=== PATIENT | female | born 1970 | race Caucasian/White ===

== ENCOUNTER 2020-10-13 01:56 | Emergency (ER) | payer OTHER ==
--- OUTSIDE RECORDS SUMMARY | 2020-10-13 02:02 | XMS REPORT | Continuity of Care Document ---
:1970 Author Organization [facility] t Address [address] [place] [address] Care Team Providers Name Role Phone Quinn Carlos Attending Clinician Unavailable Henry Guerra Attending Clinician Unavailable Marissa WYNN Attending Clinician Unavailable Ermelinda Avila Attending Clinician Unavailable Taj Attending Clinician Unavailable AYLEEN BACK Attending Clinician Unavailable YONY COOLEY Attending Clinician Unavailable KASSI Attending Clinician Unavailable MJ Attending Clinician Unavailable WILLIAM Attending Clinician Unavailable Jose L Admitting Clinician Unavailable MJ Admitting Clinician Unavailable Problems This patient has no known problems. Allergies, Adverse Reactions, Alerts This patient has no known allergies or adverse reactions. Medications This patient has no known medications. Procedures This patient has no known procedures. Results Test Description Test Time Test Comments Results Result Comments Source Accuc[facility]k 2018-11-29 06:31:00 Test Item Value Reference Range Interpretation Comme nts [facility]uc[facility] (test code = ACU) 179 mg/dL 70-110 H [id number] 13:42:00 Test Item Value Reference Range Interpretation Comments Chemistry (test code 130 mmol/L 136-145 L = NA-T) Chemistry (test code 4.8 mmol/L 3.5-5.1 N = K-T) Chemistry (test code 95 mmol/L 98-107 L = CL) Chemistry (test code 23 mmol/L 22-29 N = CO2) Chemistry (test code 17 mmol/L 10-20 N = ANGP) Chemistry (test code 19 mg/dL 7.0-18.7 H = BUN) Chemistry (test code 1.08 mg/dL 0.6-1.1 N = CREATT) Chemistry (test code 55 Referen ce Range for = EGFRMDRD) Estimated GFR: Great er than 90 mL/min/1.73 m2NOTE:The MDRD equation has no t been validated for u se with theelderly (ove r 70 years of age), women, patientswith se rious comorbid condit ion or persons with ex tremes ofbody size, mu scle mass, or nutrit ional status. Chemistry (test code 452 mg/dL 70-105 H = GLU-T) Chemistry (test code 9.4 mg/dL 7.8-10.44 N = CA) [id number] 21:09:00 Test Item Value Reference Range Interpretation Comments Urinalysis (test Negative Negative Method of s ensitivity- code = BHCGUT) INDETERMINANT : results should be repea humphrey after 48-72 hrs POS ITIVE: results may be detected as early as 1 day after the first missed period A dilute urine specimen may no t contain representativel evels of hCG.If pregnanc y is still suspected, a fi rst morning urinespecimen O R a random blood specimen should be obtainedfrom e patient 48-72 hours lat er and re-tested. Urinalysis (test 1.020 1.002-1.036 N code = PREGUSG) [id number] 23:52:00 Test Item Value Reference Range Interpretation Comments Urinalysis (test code = UACLR) Yellow Yellow Urinalysis (test code = UACLY) Clear Clear Urinalysis (test code = SPGR) 1.007 1.002-1.036 N Urinalysis (test code = PATRICIA) 5.5 5.0-9.0 N Urinalysis (test code = UALEU) Negative Negative Urinalysis (test code = UANIT) Negative Negative Urinalysis (test code = Negative mg/dL Neg-Trace PROUADIP) Urinalysis (test code = GLUCU) Negative mg/dL Negative Urinalysis (test code = KETU) Trace mg/dL Negative A Urinalysis (test code = 0.2 mg/dL 0.2-1.0 UAUROB) Urinalysis (test code = UABIL) Negative Negative Urinalysis (test code = UABLD) Moderate Negative A Urine Source: Urine [id number] 23:52:00 Test Item Value Reference Range Interpretation Comments Urinalysis (test code = UARBC) 4-6 HPF 0-3 Urinalysis (test code = UAWBC) 0-3 HPF 0-3 Urinalysis (test code = UASQUAM) 4-6 HPF 0-3 A Urinalysis (test code = UABAC) Rare-Few HPF None Seen Urine Source: Urine [id number] 22:41:00 Test Item Value Reference Range Interpretation Comments Chemistry (test 136 mmol/L 136-145 N code = NA-T) Chemistry (test 4.2 mmol/L 3.5-5.1 N code = K-T) Chemistry (test 97 mmol/L 98-107 L code = CL) Chemistry (test 23 mmol/L 22-29 N code = CO2) Chemistry (test 20 mmol/L 10-20 N code = ANGP) Chemistry (test 22 mg/dL 7.0-18.7 H code = BUN) Chemistry (test 0.90 mg/dL 0.6-1.1 N code = CREATT) Chemistry (test 68 Reference Ra nge for code = EGFRMDRD) Estimated G FR: Gre ater than 90 mL/min/ 1.73 m2NOTE:The MDRD equation has no t been validated for use with theeld erly (over 70 years of age), women, patients with serious comorbi d condition or pe rsons with extremes o fbody size, muscle ma ss, or nutritional status. Chemistry (test 151 mg/dL 70-105 H code = GLU-T) Chemistry (test 9.1 mg/dL 7.8-10.44 N code = CA) Chemistry (test 0.2 mg/dL 0.2-1.2 N code = TBILI) Chemistry (test 6.8 g/dL 6.0-8.3 N code = TP) Chemistry (test 3.6 g/dL 3.5-5.0 N code = ALB) Chemistry (test 3.2 g/dL 2.4-3.5 N code = GLOB) Chemistry (test 1.1 g/dL 1.2-2.2 L code = AG) Chemistry (test 52 U/L 40-150 N code = ALP) Chemistry (test 5 U/L 5-34 N code = AST) Chemistry (test Less than 7 8-55 L code = ALT) U/L [id number] 22:31:00 Test Item Value Reference Range Interpretation Comments Hematology (test code = WBCT) 11.9 thou/uL 4.8-10.8 H Hematology (test code = RBCT) 3.60 mill/uL 4.20-5.40 L Hematology (test code = HGBT) 10.5 g/dL 12.0-16.0 L Hematology (test code = HCTT) 31.6 % 36.0-47.0 L Hematology (test code = MCV) 87.8 fL 78.0-98.0 N Hematology (test code = MCH) 29.1 pg 27.0-31.0 N Hematology (test code = MCHC) 33.1 g/dL 32.0-36.0 N Hematology (test code = RDW) 13.8 % 11.5-14.5 N Hematology (test code = PLTT) 223 thou/uL 130-400 N Hematology (test code = MPV) 8.4 fL 7.4-10.4 N Hematology (test code = %NEUT) 69.4 % 42.0-75.0 N Hematology (test code = %LYMPH) 23.6 % 21.0-51.0 N Hematology (test code = %MONO) 5.6 % 0.0-10.0 N Hematology (test code = %EOS) 0.7 % 0.0-10.0 N Hematology (test code = %BASO) 0.7 % 0.0-1.0 N Hematology (test code = NEUT#) 8.3 thou/uL 1.40-6.50 H Hematology (test code = LYMPH#) 2.8 thou/uL 1.20-3.40 N Hematology (test code = MONO#) 0.7 thou/uL 0.11-0.59 H Hematology (test code = EOS#) 0.1 thou/uL 0.0-0.7 N Hematology (test code = BASO#) 0.1 thou/uL 0.0-0.2 N Chemistry - [id number] 00:38:00 Test Item Value Reference Range Interpretation Comments Chemistry - Specials (test code 1.3819 uIU/mL 0.35-4.94 N = TSH3) Chemistry - [id number] 00:38:00 Test Item Value Reference Range Interpretation Comments Chemistry - Specials Negative NEGATIVE Method of sensitivity- (test code = BHCGST) Indete rminant: results should be repeated after 48-72 hrs Positive: results may be detected as ear ly as 1 day after the first missed menses. [id number] 00:22:00 Test Item Value Reference Range Interpretation Comments Chemistry (test 0.4 ng/mL 0-6.6 N code = CKMBM-T) Chemistry (test Less than < 0.028 code = TROPI-T) 0.010 ng/mL Reference Ra nge 0. 00 - 0.028 ng/mL Negative 0.029 - 0.29 n g/mL Indeterminate Greater or Equa l to 0.3 ng/mL St rongly suggests ID [id number] 00:18:00 Test Item Value Reference Range Interpretation Comments Coagulation (test code = PTT) 33.1 SEC 22.9-36.1 N Anticoagulant? NONEMedical Necessity: SUSP [id number] 00:12:00 Test Item Value Reference Range Interpretation Comments Chemistry (test code = MG) 1.7 mg/dL 1.6-2.6 N [id number] 00:08:00 Test Item Value Reference Range Interpretation Comments Coagulation (test 13.5 SEC 12.0-14.7 N code = PT-T) Coagulation (test 1.0 ATTENTION: code = INR) READ CAREFULLY-- The recommended the rapeutic ranges for oral anticoagulanttr eatments are: ------ Low Intensity: 1.5 - 2.0 Moderate In tensity: 2.0 - 3.0 High Intensity (1): 2.5 - 3.5 High In tensity (2): 3.0 - 4. 0 CRITICAL: > 4.0 Anticoagulant? NONEMedical Necessity SUSPECT [id number] 23:10:00 Test Item Value Reference Range Interpretation Comments Chemistry (test code 140 mmol/L 136-145 N = NA-T) Chemistry (test code 4.1 mmol/L 3.5-5.1 N = K-T) Chemistry (test code 105 mmol/L 98-107 N = CL) Chemistry (test code 19 mmol/L 22-29 L = CO2) Chemistry (test code 20 mmol/L 10-20 N = ANGP) Chemistry (test code 16 mg/dL 7.0-18.7 N = BUN) Chemistry (test code 0.70 mg/dL 0.6-1.1 N = CREATT) Chemistry (test code 90 Referen ce Range for = EGFRMDRD) Estimated GFR: Great er than 90 mL/min/1.73 m2NOTE:The MDRD equation has no t been validated for u se with theelderly (ove r 70 years of age), women, patientswith se rious comorbid condit ion or persons with ex tremes ofbody size, mu scle mass, or nutrit ional status. Chemistry (test code 149 mg/dL 70-105 H = GLU-T) Chemistry (test code 10.0 mg/dL 7.8-10.44 N = CA) Chemistry (test code 0.3 mg/dL 0.2-1.2 N = TBILI) Chemistry (test code 7.4 g/dL 6.0-8.3 N = TP) Chemistry (test code 4.1 g/dL 3.5-5.0 N = ALB) Chemistry (test code 3.3 g/dL 2.4-3.5 N = GLOB) Chemistry (test code 1.2 g/dL 1.2-2.2 N = AG) Chemistry (test code 62 U/L 40-150 N = ALP) Chemistry (test code 10 U/L 5-34 N = AST) Chemistry (test code 7 U/L 8-55 L = ALT) [id number] 23:10:00 Test Item Value Reference Range Interpretation Comments Chemistry (test code = LIP) 35 U/L 8-78 N Chemistry - [id number] 23:06:00 Test Item Value Reference Range Interpretation Comments Chemistry - Lactate (test code = 1.7 mmol/L 0.5-2.2 N LACTSEP-T) [id number] 22:47:00 Test Item Value Reference Range Interpretation Comments Hematology (test code = WBCT) 11.2 thou/uL 4.8-10.8 H Hematology (test code = RBCT) 4.10 mill/uL 4.20-5.40 L Hematology (test code = HGBT) 11.6 g/dL 12.0-16.0 L Hematology (test code = HCTT) 34.3 % 36.0-47.0 L Hematology (test code = MCV) 83.6 fL 78.0-98.0 N Hematology (test code = MCH) 28.2 pg 27.0-31.0 N Hematology (test code = MCHC) 33.7 g/dL 32.0-36.0 N Hematology (test code = RDW) 14.5 % 11.5-14.5 N Hematology (test code = PLTT) 238 thou/uL 130-400 N Hematology (test code = MPV) 8.2 fL 7.4-10.4 N Hematology (test code = %NEUT) 67.4 % 42.0-75.0 N Hematology (test code = %LYMPH) 27.2 % 21.0-51.0 N Hematology (test code = %MONO) 4.1 % 0.0-10.0 N Hematology (test code = %EOS) 0.4 % 0.0-10.0 N Hematology (test code = %BASO) 0.9 % 0.0-1.0 N Hematology (test code = NEUT#) 7.5 thou/uL 1.40-6.50 H Hematology (test code = LYMPH#) 3.0 thou/uL 1.20-3.40 N Hematology (test code = MONO#) 0.5 thou/uL 0.11-0.59 N Hematology (test code = EOS#) 0.0 thou/uL 0.0-0.7 N Hematology (test code = BASO#) 0.1 thou/uL 0.0-0.2 N [id number] 22:47:00 Test Item Value Reference Range Interpretation Comments Accuchek (test code = ACU) 147 mg/dL 70-110 H Molecular Testing [id number] 20:21:00 Test Item Value Reference Range Interpretation Comments Molecular Testing Not Detected NotDetected MM (test code = GCPCRT) Molecular Testing Not Detected NotDetected MM (test code = CHLAMPCRT) Molecular Testing MM (test code = PCRINTERP) Acc urate results are dep endent on adequate specimencollect ion, absence of inhi bitors and sufficient DNA to bedetected. Ac ceptable specimens for t his test are vaginal orc ervical swabs (self col lected or clinician collected),firs t void urine (primary specimen for males), and liquidbased pap specimens.A res ult of "Inconclusive" warrants re-collection.V iability or infectivity can NOT be inferred sin ce targetDNA may p ersist in the absence of viable organisms. For Urine Sources Collect ion of urine volumes g reater than 20-40 mLs mayresult in sp ecimen dilution that m ay reduce testsens itivity; lesser volumes may not adequately rinseorganisms into the specimen Source: Urine VOIDED [id number] 08:23:00 Test Item Value Reference Range Interpretation Comments Toxicology (test Detected NotDetected A code = ARNAUD) Toxicology (test Not Detected NotDetected code = PCP) Toxicology (test Not Detected NotDetected code = COCN) Toxicology (test Not Detected NotDetected code = METHAMPU) Toxicology (test Detected NotDetected A code = OPIA) Toxicology (test Not Detected NotDetected code = AMPHU) Toxicology (test Not Detected NotDetected code = RUSTY) Toxicology (test Not Detected NotDetected code = TRICY) Toxicology (test Not Detected NotDetected code = MTD) Toxicology (test Not Detected NotDetected code = EDITA) Toxicology (test Not Detected NotDetected code = OXYCOD) Toxicology (test Not Detected NotDetected code = PPX) Toxicology (test The MedT ox Profile-V code = MTCUTOFF) Panel for Q ualitative Drugs ofAbuse a ssays are for presump tive screening testi ng only.The drug c lass and detection l imits are as follows: Drug Class Detection LimitAmphetamin e 500 ng/mL*Barbitura ruperto 200 ng/mLBenzodiaze pines 150 ng/mL*Cocaine 150 ng/mL*Methamphe tamine 500 ng/mL*Methadone 200 ng/mL*Opiates 100 ng/mL*Oxycodone 100 n g/mLPCP 25 ng/mLPropox yphene 30 0 ng/mLTricyclic Antidepressants 300 ng/mLCannabinoi ds (THC) 50 ng/mLTests whic h yield a presumptive p ositive result must bet ested using a more sp ecific alternate chemi red method inorder to obtain a confir med analytical resu lt. Additionalconfi rmation and identificat ion may be ordered on a routinebasis, i f desired. Presu mptive positive urines are held fortwo mignon tn. Urine Source: Urine Straight [id number] 08:22:00 Test Item Value Reference Range Interpretation Comments Urinalysis (test Negative Negative Method of s ensitivity- code = BHCGUT) INDETERMINANT : results should be repea humphrey after 48-72 hrs POS ITIVE: results may be detected as early as 1 day after the first missed period A dilute urine specimen may no t contain representativel evels of hCG.If pregnanc y is still suspected, a fi rst morning urinespecimen O R a random blood specimen should be obtainedfrom th e patient 48-72 hours lat er and re-tested. Urinalysis (test 1.015 1.002-1.036 N code = PREGUSG) [id number] 08:21:00 Test Item Value Reference Range Interpretation Comments Urinalysis (test code = UACLR) Yellow Yellow Urinalysis (test code = UACLY) Clear Clear Urinalysis (test code = SPGR) 1.015 1.005-1.030 N Urinalysis (test code = PATRICIA) 6.5 5.0-9.0 N Urinalysis (test code = UALEU) Negative Negative Urinalysis (test code = UANIT) Negative Negative Urinalysis (test code = PROUADIP) 100 mg/dL Neg-Trace A Urinalysis (test code = GLUCU) 500 mg/dL Negative A Urinalysis (test code = KETU) 40 mg/dL Negative A Urinalysis (test code = UAUROB) 0.2 mg/dL 0.2-1.0 Urinalysis (test code = UABIL) Negative Negative Urinalysis (test code = UABLD) Moderate Negative A Urine Source: Urine Straight [id number] 08:21:00 Test Item Value Reference Range Interpretation Comments Urinalysis (test code = UARBC) 7-10 HPF 0-3 A Urinalysis (test code = UASQUAM) 4-6 HPF 0-3 A Urinalysis (test code = UABAC) Rare-Few HPF None Seen Urine Source: Urine Straight [id number] 08:12:00 Test Item Value Reference Range Interpretation Comments Hematology (test code = 11.5 thou/uL 4.8-10.8 H WBCT) Hematology (test code = 3.75 mill/uL 4.20-5.40 L RBCT) Hematology (test code = 11.2 g/dL 12.0-16.0 L HGBT) Hematology (test code = 33.9 % 36.0-47.0 L HCTT) Hematology (test code = 88.2 fl 81.0-99.0 N MCV) Hematology (test code = 29.3 pg 27.0-31.0 N MCH) Hematology (test code = 33.2 g/dL 32.0-36.0 N MCHC) Hematology (test code = 12.2 % 11.5-14.5 N RDW) Hematology (test code = 317 thou/uL 130-400 N PLTT) Hematology (test code = 7.6 fL 7.4-10.4 N MPV) Hematology (test code = 67 % 42-75 N NE) Hematology (test code = 1 % 5-11 L BA) Hematology (test code = 27 % 21-51 N LY) Hematology (test code = 4 % 0-10 N MO) Hematology (test code = 1 % 0-10 N EO) Hematology (test code = SLIGHT = 6-15 cells 0-5/hpf AN) (100X) Hematology (test code = Appears Adequate PCOMMENT) [id number] 08:08:00 Test Item Value Reference Range Interpretation Comments Chemistry (test 137 mmol/L 136-145 N code = NA-T) Chemistry (test 4.2 mmol/L 3.5-5.1 N code = K-T) Chemistry (test 101 mmol/L 98-107 N code = CL) Chemistry (test 22 mmol/L 22-29 N code = CO2) Chemistry (test 18 mmol/L 10-20 N code = ANGP) Chemistry (test 11 mg/dL 7.0-18.7 N code = BUN) Chemistry (test 0.72 mg/dL 0.6-1.1 N code = CREATT) Chemistry (test 88 Reference Ra nge for code = EGFRMDRD) Estimated G FR: Gre ater than 90 mL/min/ 1.73 m2NOTE:The MDRD equation has no t been validated for use with theeld erly (over 70 years of age), women, patients with serious comorbi d condition or pe rsons with extremes o fbody size, muscle ma ss, or nutritional status. Chemistry (test 363 mg/dL 70-105 H code = GLU-T) Chemistry (test 9.1 mg/dL 7.8-10.44 N code = CA) Chemistry (test 0.2 mg/dL 0.2-1.2 N code = TBILI) Chemistry (test 6.8 g/dL 6.0-8.3 N code = TP) Chemistry (test 3.5 g/dL 3.5-5.0 N code = ALB) Chemistry (test 3.3 g/dL 2.4-3.5 N code = GLOB) Chemistry (test 1.1 g/dL 1.2-2.2 L code = AG) Chemistry (test 60 U/L 40-150 N code = ALP) Chemistry (test 6 U/L 5-34 N code = AST) Chemistry (test Less than 7 8-55 L code = ALT) U/L What test does the doctor want? C-REACTIVE PROTEIN (CRP)[id number] 08:08:00 Test Item Value Reference Range Interpretation Comments Chemistry (test code = Less than 0.50 = or < 0.5 CRP) mg/dL What test does the doctor want? C-REACTIVE PROTEIN (CRP)[id number] 08:06:00 Test Item Value Reference Range Interpretation Comments Chemistry (test code = CK) 21 U/L 29-168 L [id number] 08:06:00 Test Item Value Reference Range Interpretation Comments Chemistry (test code = CHANDRA) 29.0 U/L 25-125 N [id number] 08:06:00 Test Item Value Reference Range Interpretation Comments Chemistry (test code = LIP) 24 U/L 8-78 N [id number] 16:28:00 Test Item Value Reference Range Interpretation Comments Accuchek (test code = ACU) 313 mg/dL 70-110 H [id number] 13:14:00 Test Item Value Reference Range Interpretation Comments Accuchek (test code = ACU) 348 mg/dL 70-110 H [id number] 12:26:00 Test Item Value Reference Range Interpretation Comments Urinalysis (test code = UACLR) Yellow Yellow Urinalysis (test code = UACLY) Clear Clear Urinalysis (test code = SPGR) 1.015 1.005-1.030 N Urinalysis (test code = PATRICIA) 6.0 5.0-9.0 N Urinalysis (test code = UALEU) Negative Negative Urinalysis (test code = UANIT) Negative Negative Urinalysis (test code = 100 mg/dL Neg-Trace A PROUADIP) Urinalysis (test code = GLUCU) >=1000 mg/dL Negative A Urinalysis (test code = KETU) 15 mg/dL Negative A Urinalysis (test code = UAUROB) 0.2 mg/dL 0.2-1.0 Urinalysis (test code = UABIL) Negative Negative Urinalysis (test code = UABLD) Moderate Negative A Urine Source: Urine [id number] 12:26:00 Test Item Value Reference Range Interpretation Comments Urinalysis (test code = UARBC) 4-6 HPF 0-3 Urinalysis (test code = UAWBC) None Seen HPF 0-3 Urinalysis (test code = 4-6 HPF 0-3 A UASQUAM) Urinalysis (test code = UABAC) Rare-Few HPF None Seen Urine Source: Urine [id number] 11:40:00 Test Item Value Reference Range Interpretation Comments Hematology (test code = WBCT) 9.8 thou/uL 4.8-10.8 N Hematology (test code = RBCT) 3.83 mill/uL 4.20-5.40 L Hematology (test code = HGBT) 11.4 g/dL 12.0-16.0 L Hematology (test code = HCTT) 33.5 % 36.0-47.0 L Hematology (test code = MCV) 87.6 fl 81.0-99.0 N Hematology (test code = MCH) 29.8 pg 27.0-31.0 N Hematology (test code = MCHC) 34.1 g/dL 32.0-36.0 N Hematology (test code = RDW) 12.7 % 11.5-14.5 N Hematology (test code = PLTT) 264 thou/uL 130-400 N Hematology (test code = MPV) 8.6 fL 7.4-10.4 N Hematology (test code = NE) 63 % 42-75 N Hematology (test code = LY) 31 % 21-51 N Hematology (test code = MO) 6 % 0-10 N Chemistry - [id number] 11:33:00 Test Item Value Reference Range Interpretation Comments Chemistry - Lactate (test code = 1.1 mmol/L 0.5-2.2 N LACTSEP-T) [id number] 11:27:00 Test Item Value Reference Range Interpretation Comments Chemistry (test 135 mmol/L 136-145 L code = NA-T) Chemistry (test 4.3 mmol/L 3.5-5.1 N code = K-T) Chemistry (test 100 mmol/L 98-107 N code = CL) Chemistry (test 23 mmol/L 22-29 N code = CO2) Chemistry (test 16 mmol/L 10-20 N code = ANGP) Chemistry (test 14 mg/dL 7.0-18.7 N code = BUN) Chemistry (test 0.76 mg/dL 0.6-1.1 N code = CREATT) Chemistry (test 83 Reference Ra nge for code = EGFRMDRD) Estimated G FR: Gre ater than 90 mL/min/ 1.73 m2NOTE:The MDRD equation has no t been validated for use with theeld erly (over 70 years of age), women, patients with serious comorbi d condition or pe rsons with extremes o fbody size, muscle ma ss, or nutritional status. Chemistry (test 438 mg/dL 70-105 H code = GLU-T) Chemistry (test 9.4 mg/dL 7.8-10.44 N code = CA) Chemistry (test Less than 0.3 0.2-1.2 N code = TBILI) mg/dL Chemistry (test 6.6 g/dL 6.0-8.3 N code = TP) Chemistry (test 3.6 g/dL 3.5-5.0 N code = ALB) Chemistry (test 3.0 g/dL 2.4-3.5 N code = GLOB) Chemistry (test 1.2 g/dL 1.2-2.2 N code = AG) Chemistry (test 64 U/L 40-150 N code = ALP) Chemistry (test 6 U/L 5-34 N code = AST) Chemistry (test 6 U/L 8-55 L code = ALT) [id number] 11:27:00 Test Item Value Reference Range Interpretation Comments Chemistry (test code = LIP) 27 U/L 8-78 N Chemistry - [id number] 11:26:00 Test Item Value Reference Range Interpretation Comments Chemistry - Specials Negative NEGATIVE Method of sensitivity- (test code = BHCGST) Indete rminant: results should be repeated after 48-72 hrs Positive: results may be detected as ear ly as 1 day after the first missed menses. Culture, [id number] 14:57:00 Test Item Value Reference Range Interpretation Comments O:KLPSP (test code = Klebsiella KLPSP) pneumoniae ssp pneu Amikacin (test code = AN) <=2 S Ampicillin/Sulbactam 8 S (test code = HENRIET[place]) Cefepime (test code = <=1 S FEP) Ceftazidime (test code = <=1 S CAZV) Ceftriaxone (test code = <=1 S [facility]) Cefoxitin (test code = <=4 S CFX) Ciprofloxacin (test code <=0.25 S = CIP) Gentamicin (test code = <=1 S GMV) Levofloxacin (test code = <=0.12 S LEV) Meropenem (test code = <=0.25 S MEM) Nitrofurantoin (test code 32 S = FT) Piperacillin/Tazobactam <=4 S (test code = TZP) Tobramycin (test code = <=1 S TM) Trimethoprim/Sulfamethoxa <=20 S zole (test code = SXTV) Culture, Urine (test code QUANTITATION: N = URC) Culture, Urine (test code 50,000 TO 75,000 N = URC1.1) cfu/mL ESBL: -[id number] 23:45:00 Test Item Value Reference Range Interpretation Comments Accuchek (test code = ACU) 422 mg/dL 70-110 H [id number] 23:30:00 Test Item Value Reference Range Interpretation Comments Urinalysis (test code = Yellow Yellow UACLR) Urinalysis (test code = Hazy Clear UACLY) Urinalysis (test code = 1.010 1.005-1.030 N SPGR) Urinalysis (test code = 5.0 5.0-9.0 N PATRICIA) Urinalysis (test code = Negative Negative UALEU) Urinalysis (test code = Negative Negative UANIT) Urinalysis (test code = > or equal to 300 Neg-Trace A PROUADIP) mg/dL Urinalysis (test code = >=1000 mg/dL Negative A GLUCU) Urinalysis (test code = > or equal to 80 Negative A KETU) mg/dL Urinalysis (test code = 0.2 mg/dL 0.2-1.0 UAUROB) Urinalysis (test code = Negative Negative UABIL) Urinalysis (test code = Moderate Negative A UABLD) Urine Source: Urine [id number] 23:30:00 Test Item Value Reference Range Interpretation Comments Urinalysis (test code = UARBC) 7-10 HPF 0-3 A Urinalysis (test code = UAWBC) 0-3 HPF 0-3 Urinalysis (test code = UASQUAM) 7-10 HPF 0-3 A Urinalysis (test code = UABAC) Rare-Few HPF None Seen Urinalysis (test code = UAYEAST) 1+ HPF None Seen A Urine Source: Urine [id number] 22:38:00 Test Item Value Reference Range Interpretation Comments Chemistry (test code 137 mmol/L 136-145 N = NA-T) Chemistry (test code 4.7 mmol/L 3.5-5.1 N = K-T) Chemistry (test code 106 mmol/L 98-107 N = CL) Chemistry (test code 17 mmol/L 22-29 L = CO2) Chemistry (test code 19 mmol/L 10-20 N = ANGP) Chemistry (test code 14 mg/dL 7.0-18.7 N = BUN) Chemistry (test code 0.92 mg/dL 0.6-1.1 N = CREATT) Chemistry (test code 66 Referen ce Range for = EGFRMDRD) Estimated GFR: Great er than 90 mL/min/1.73 m2NOTE:The MDRD equation has no t been validated for u se with theelderly (ove r 70 years of age), women, patientswith se rious comorbid condit ion or persons with ex tremes ofbody size, mu scle mass, or nutrit ional status. Chemistry (test code 522 mg/dL 70-105 H = GLU-T) Chemistry (test code 9.5 mg/dL 7.8-10.44 N = CA) Chemistry (test code 0.5 mg/dL 0.2-1.2 N = TBILI) Chemistry (test code 7.5 g/dL 6.0-8.3 N = TP) Chemistry (test code 3.7 g/dL 3.5-5.0 N = ALB) Chemistry (test code 3.8 g/dL 2.4-3.5 H = GLOB) Chemistry (test code 1.0 g/dL 1.2-2.2 L = AG) Chemistry (test code 90 U/L 40-150 N = ALP) Chemistry (test code 8 U/L 5-34 N = AST) Chemistry (test code 8 U/L 8-55 N = ALT) [id number] 22:38:00 Test Item Value Reference Range Interpretation Comments Chemistry (test code = LIP) 12 U/L 8-78 N Chemistry - [id number] 22:31:00 Test Item Value Reference Range Interpretation Comments Chemistry - Lactate (test code = 1.9 mmol/L 0.5-2.2 N LACTSEP-T) [id number] 22:21:00 Test Item Value Reference Range Interpretation Comments Hematology (test code = WBCT) 18.7 thou/uL 4.8-10.8 H Hematology (test code = RBCT) 4.28 mill/uL 4.20-5.40 N Hematology (test code = HGBT) 12.0 g/dL 12.0-16.0 N Hematology (test code = HCTT) 36.3 % 36.0-47.0 N Hematology (test code = MCV) 84.9 fl 81.0-99.0 N Hematology (test code = MCH) 28.0 pg 27.0-31.0 N Hematology (test code = MCHC) 33.0 g/dL 32.0-36.0 N Hematology (test code = RDW) 13.5 % 11.5-14.5 N Hematology (test code = PLTT) 307 thou/uL 130-400 N Hematology (test code = MPV) 8.6 fL 7.4-10.4 N Hematology (test code = %NEUT) 91.1 % 42.0-75.0 H Hematology (test code = %LYMPH) 7.3 % 21.0-51.0 L Hematology (test code = %MONO) 1.2 % 0.0-10.0 N Hematology (test code = %EOS) 0.0 % 0.0-10.0 N Hematology (test code = %BASO) 0.4 % 0.0-1.0 N Hematology (test code = NEUT#) 17.0 thou/uL 1.40-6.50 H Hematology (test code = LYMPH#) 1.4 thou/uL 1.20-3.40 N Hematology (test code = MONO#) 0.2 thou/uL 0.11-0.59 N Hematology (test code = EOS#) 0.0 thou/uL 0.0-0.7 N Hematology (test code = BASO#) 0.1 thou/uL 0.0-0.2 N [id number] 03:30:00 Test Item Value Reference Range Interpretation Comments Accuchek (test code = ACU) 98 mg/dL 70-110 N [id number] 02:17:00 Test Item Value Reference Range Interpretation Comments Accuchek (test code = ACU) 231 mg/dL 70-110 H [id number] 01:41:00 Test Item Value Reference Range Interpretation Comments Accuchek (test code = ACU) 489 mg/dL 70-110 H [id number] 01:13:00 Test Item Value Reference Range Interpretation Comments Urinalysis (test code = Straw Yellow UACLR) Urinalysis (test code = Slightly Cloudy Clear UACLY) Urinalysis (test code = 1.015 1.005-1.030 N SPGR) Urinalysis (test code = 5.5 5.0-9.0 N PATRICIA) Urinalysis (test code = Negative Negative UALEU) Urinalysis (test code = Negative Negative UANIT) Urinalysis (test code = > or equal to 300 Neg-Trace A PROUADIP) mg/dL Urinalysis (test code = 500 mg/dL Negative A GLUCU) Urinalysis (test code = 15 mg/dL Negative A KETU) Urinalysis (test code = 0.2 mg/dL 0.2-1.0 UAUROB) Urinalysis (test code = Negative Negative UABIL) Urinalysis (test code = Moderate Negative A UABLD) Urinalysis (test code = 21-50 HPF 0-3 A UARBC) Urinalysis (test code = 11-20 HPF 0-3 A UAWBC) Urinalysis (test code = 7-10 HPF 0-3 A UASQUAM) Urinalysis (test code = 4-6 HPF 0-3 A UARENAL) Urinalysis (test code = 3+ HPF None Seen A UABAC) Urine Source: Urine [id number] 00:18:00 Test Item Value Reference Range Interpretation Comments Chemistry (test 0.4 ng/mL 0-6.6 N code = CKMBM-T) Chemistry (test Less than < 0.028 code = TROPI-T) 0.010 ng/mL Reference Ra nge 0. 00 - 0.028 ng/mL Negative 0.029 - 0.29 n g/mL Indeterminate Greater or Equa l to 0.3 ng/mL St maikelgly suggests ID [id number] 00:13:00 Test Item Value Reference Range Interpretation Comments Hematology (test code = WBCT) 11.7 thou/uL 4.8-10.8 H Hematology (test code = RBCT) 4.23 mill/uL 4.20-5.40 N Hematology (test code = HGBT) 11.9 g/dL 12.0-16.0 L Hematology (test code = HCTT) 35.5 % 36.0-47.0 L Hematology (test code = MCV) 84.0 fl 81.0-99.0 N Hematology (test code = MCH) 28.1 pg 27.0-31.0 N Hematology (test code = MCHC) 33.5 g/dL 32.0-36.0 N Hematology (test code = RDW) 13.3 % 11.5-14.5 N Hematology (test code = PLTT) 358 thou/uL 130-400 N Hematology (test code = MPV) 8.2 fL 7.4-10.4 N Hematology (test code = %NEUT) 59.1 % 42.0-75.0 N Hematology (test code = %LYMPH) 30.8 % 21.0-51.0 N Hematology (test code = %MONO) 7.6 % 0.0-10.0 N Hematology (test code = %EOS) 1.3 % 0.0-10.0 N Hematology (test code = %BASO) 1.1 % 0.0-1.0 H Hematology (test code = NEUT#) 6.9 thou/uL 1.40-6.50 H Hematology (test code = LYMPH#) 3.6 thou/uL 1.20-3.40 H Hematology (test code = MONO#) 0.9 thou/uL 0.11-0.59 H Hematology (test code = EOS#) 0.2 thou/uL 0.0-0.7 N Hematology (test code = BASO#) 0.1 thou/uL 0.0-0.2 N Chemistry - [id number] 00:11:00 Test Item Value Reference Range Interpretation Comments Chemistry - Specials Negative NEGATIVE Method of sensitivity- (test code = BHCGST) Indete rminant: results should be repeated after 48-72 hrs Positive: results may be detected as ear ly as 1 day after the first missed menses. [id number] 00:08:00 Test Item Value Reference Range Interpretation Comments Chemistry (test code 135 mmol/L 136-145 L = NA-T) Chemistry (test code 3.6 mmol/L 3.5-5.1 N = K-T) Chemistry (test code 97 mmol/L 98-107 L = CL) Chemistry (test code 24 mmol/L 22-29 N = CO2) Chemistry (test code 18 mmol/L 10-20 N = ANGP) Chemistry (test code 18 mg/dL 7.0-18.7 N = BUN) Chemistry (test code 1.05 mg/dL 0.6-1.1 N = CREATT) Chemistry (test code 57 Referen ce Range for = EGFRMDRD) Estimated GFR: Great er than 90 mL/min/1.73 m2NOTE:The MDRD equation has no t been validated for u se with theelderly (ove r 70 years of age), women, patientswith se rious comorbid condit ion or persons with ex tremes ofbody size, mu scle mass, or nutrit ional status. Chemistry (test code 549 mg/dL 70-105 H = GLU-T) Chemistry (test code 9.1 mg/dL 7.8-10.44 N = CA) Chemistry (test code 0.3 mg/dL 0.2-1.2 N = TBILI) Chemistry (test code 7.7 g/dL 6.0-8.3 N = TP) Chemistry (test code 3.7 g/dL 3.5-5.0 N = ALB) Chemistry (test code 4.0 g/dL 2.4-3.5 H = GLOB) Chemistry (test code 0.9 g/dL 1.2-2.2 L = AG) Chemistry (test code 94 U/L 40-150 N = ALP) Chemistry (test code 5 U/L 5-34 N = AST) Chemistry (test code 6 U/L 8-55 L = ALT) [id number] 00:08:00 Test Item Value Reference Range Interpretation Comments Chemistry (test code = CHANDRA) 28.0 U/L 25-125 N [id number] 00:08:00 Test Item Value Reference Range Interpretation Comments Chemistry (test code = LIP) 25 U/L 8-78 N Culture, [id number] 08:12:00 Test Item Value Reference Range Interpretation Comments Culture, Blood (test code NO GROWTH IN 5 DAYS = BC) [id number] 16:51:00 Test Item Value Reference Range Interpretation Comments Accuchek (test code = ACU) 278 mg/dL 70-110 H [id number] 11:57:00 Test Item Value Reference Range Interpretation Comments Accuchek (test code = ACU) 220 mg/dL 70-110 H [id number] 09:32:00 Test Item Value Reference Range Interpretation Comments Chemistry (test 12.8 ug/mL Vancomycin T rough Level Goal code = VANCT-T) -Indication Goal t rough level S[employer] RANGING [employer]BER Infe ctions 20 - 30 mcg/mLSepsis, B acteremia, endocarditis,ne utropenic fever, osteomyelitisco mplicated cellulitis, pne umonia 15 - 25 mcg/mLE mpiric therapy 15 - 20 mcg/mLOther infections 10 - 20 mcg/mLNote: For SHANTEL > 1 consider using another antibiotic agen t. Culture, [id number] 08:34:00 Test Item Value Reference Range Interpretation Comments Culture, Urine (test code = URC) NF N Culture, Urine (test code = URC1) 50 MSF N [id number] 05:48:00 Test Item Value Reference Range Interpretation Comments Accuchek (test code = ACU) 195 mg/dL 70-110 H [id number] 05:34:00 Test Item Value Reference Range Interpretation Comments Chemistry (test 136 mmol/L 136-145 N code = NA-T) Chemistry (test 3.8 mmol/L 3.5-5.1 N code = K-T) Chemistry (test 109 mmol/L 98-107 H code = CL) Chemistry (test 19 mmol/L 22-29 L code = CO2) Chemistry (test 12 mmol/L 10-20 N code = ANGP) Chemistry (test 13 mg/dL 7.0-18.7 N code = BUN) Chemistry (test 0.66 mg/dL 0.6-1.1 N code = CREATT) Chemistry (test Greater than 90 Referenc e Range for code = EGFRMDRD) Estimated G FR: Gre ater than 90 mL/min/ 1.73 m2NOTE:The MDRD equation has no t been validated for use with theeld erly (over 70 years of age), women, patients with serious comorbi d condition or pe rsons with extremes o fbody size, muscle ma ss, or nutritional status. Chemistry (test 187 mg/dL 70-105 H code = GLU-T) Chemistry (test 8.3 mg/dL 7.8-10.44 N code = CA) Chemistry (test 0.2 mg/dL 0.2-1.2 N code = TBILI) Chemistry (test 6.5 g/dL 6.0-8.3 N code = TP) Chemistry (test 3.2 g/dL 3.5-5.0 L code = ALB) Chemistry (test 3.3 g/dL 2.4-3.5 N code = GLOB) Chemistry (test 1.0 g/dL 1.2-2.2 L code = AG) Chemistry (test 83 U/L 40-150 N code = ALP) Chemistry (test 10 U/L 5-34 N code = AST) Chemistry (test 7 U/L 8-55 L code = ALT) [id number] 05:34:00 Test Item Value Reference Range Interpretation Comments Chemistry (test code = PHOS) 3.0 mg/dL 2.3-4.7 N [id number] 05:34:00 Test Item Value Reference Range Interpretation Comments Chemistry (test code = MG) 2.0 mg/dL 1.6-2.6 N [id number] 05:13:00 Test Item Value Reference Range Interpretation Comments Hematology (test code = WBCT) 8.8 thou/uL 4.8-10.8 N Hematology (test code = RBCT) 3.61 mill/uL 4.20-5.40 L Hematology (test code = HGBT) 10.6 g/dL 12.0-16.0 L Hematology (test code = HCTT) 32.0 % 36.0-47.0 L Hematology (test code = MCV) 88.4 fl 81.0-99.0 N Hematology (test code = MCH) 29.3 pg 27.0-31.0 N Hematology (test code = MCHC) 33.2 g/dL 32.0-36.0 N Hematology (test code = RDW) 13.4 % 11.5-14.5 N Hematology (test code = PLTT) 236 thou/uL 130-400 N Hematology (test code = MPV) 7.9 fL 7.4-10.4 N Hematology (test code = %NEUT) 54.5 % 42.0-75.0 N Hematology (test code = %LYMPH) 37.1 % 21.0-51.0 N Hematology (test code = %MONO) 6.1 % 0.0-10.0 N Hematology (test code = %EOS) 1.7 % 0.0-10.0 N Hematology (test code = %BASO) 0.7 % 0.0-1.0 N Hematology (test code = NEUT#) 4.8 thou/uL 1.40-6.50 N Hematology (test code = LYMPH#) 3.3 thou/uL 1.20-3.40 N Hematology (test code = MONO#) 0.5 thou/uL 0.11-0.59 N Hematology (test code = EOS#) 0.2 thou/uL 0.0-0.7 N Hematology (test code = BASO#) 0.1 thou/uL 0.0-0.2 N [id number] 02:05:00 Test Item Value Reference Range Interpretation Comments Accuchek (test code = ACU) 228 mg/dL 70-110 H [id number] 01:47:00 Test Item Value Reference Range Interpretation Comments Accuchek (test code = ACU) 284 mg/dL 70-110 H [id number] 01:47:00 Test Item Value Reference Range Interpretation Comments Accuchek (test code = ACU) 360 mg/dL 70-110 H [id number] 20:50:00 Test Item Value Reference Range Interpretation Comments Accuchek (test code = ACU) 309 mg/dL 70-110 H [id number] 06:36:00 Test Item Value Reference Range Interpretation Comments Accuchek (test code = ACU) 203 mg/dL 70-110 H [id number] 05:46:00 Test Item Value Reference Range Interpretation Comments Chemistry (test 134 mmol/L 136-145 L code = NA-T) Chemistry (test 3.7 mmol/L 3.5-5.1 N code = K-T) Chemistry (test 107 mmol/L 98-107 N code = CL) Chemistry (test 20 mmol/L 22-29 L code = CO2) Chemistry (test 11 mmol/L 10-20 N code = ANGP) Chemistry (test 13 mg/dL 7.0-18.7 N code = BUN) Chemistry (test 0.64 mg/dL 0.6-1.1 N code = CREATT) Chemistry (test Greater than 90 Referenc e Range for code = EGFRMDRD) Estimated G FR: Gre ater than 90 mL/min/ 1.73 m2NOTE:The MDRD equation has no t been validated for use with theeld erly (over 70 years of age), women, patients with serious comorbi d condition or pe rsons with extremes o fbody size, muscle ma ss, or nutritional status. Chemistry (test 210 mg/dL 70-105 H code = GLU-T) Chemistry (test 8.0 mg/dL 7.8-10.44 N code = CA) Chemistry (test 0.4 mg/dL 0.2-1.2 N code = TBILI) Chemistry (test 5.9 g/dL 6.0-8.3 L code = TP) Chemistry (test 2.8 g/dL 3.5-5.0 L code = ALB) Chemistry (test 3.1 g/dL 2.4-3.5 N code = GLOB) Chemistry (test 0.9 g/dL 1.2-2.2 L code = AG) Chemistry (test 73 U/L 40-150 N code = ALP) Chemistry (test 6 U/L 5-34 N code = AST) Chemistry (test 7 U/L 8-55 L code = ALT) [id number] 05:46:00 Test Item Value Reference Range Interpretation Comments Chemistry (test code = PHOS) 2.7 mg/dL 2.3-4.7 N [id number] 05:46:00 Test Item Value Reference Range Interpretation Comments Chemistry (test code = MG) 1.5 mg/dL 1.6-2.6 L [id number] 05:08:00 Test Item Value Reference Range Interpretation Comments Hematology (test code = WBCT) 11.1 thou/uL 4.8-10.8 H Hematology (test code = RBCT) 3.32 mill/uL 4.20-5.40 L Hematology (test code = HGBT) 9.9 g/dL 12.0-16.0 L Hematology (test code = HCTT) 28.6 % 36.0-47.0 L Hematology (test code = MCV) 86.1 fl 81.0-99.0 N Hematology (test code = MCH) 29.8 pg 27.0-31.0 N Hematology (test code = MCHC) 34.6 g/dL 32.0-36.0 N Hematology (test code = RDW) 13.2 % 11.5-14.5 N Hematology (test code = PLTT) 239 thou/uL 130-400 N Hematology (test code = MPV) 7.7 fL 7.4-10.4 N Hematology (test code = %NEUT) 61.1 % 42.0-75.0 N Hematology (test code = %LYMPH) 30.7 % 21.0-51.0 N Hematology (test code = %MONO) 6.5 % 0.0-10.0 N Hematology (test code = %EOS) 1.2 % 0.0-10.0 N Hematology (test code = %BASO) 0.6 % 0.0-1.0 N Hematology (test code = NEUT#) 6.8 thou/uL 1.40-6.50 H Hematology (test code = LYMPH#) 3.4 thou/uL 1.20-3.40 N Hematology (test code = MONO#) 0.7 thou/uL 0.11-0.59 H Hematology (test code = EOS#) 0.1 thou/uL 0.0-0.7 N Hematology (test code = BASO#) 0.1 thou/uL 0.0-0.2 N [id number] 02:01:00 Test Item Value Reference Range Interpretation Comments Accuchek (test code = ACU) 264 mg/dL 70-110 H [id number] 19:48:00 Test Item Value Reference Range Interpretation Comments Accuchek (test code = ACU) 288 mg/dL 70-110 H Chemistry - [id number] 18:53:00 Test Item Value Reference Range Interpretation Comments Chemistry - Lactate (test code = 1.2 mmol/L 0.5-2.2 N LACT-T) Chemistry - [id number] 18:12:00 Test Item Value Reference Range Interpretation Comments Chemistry - Specials (test code 1.0547 uIU/mL 0.35-4.94 N = TSH3) [id number] 17:54:00 Test Item Value Reference Range Interpretation Comments Chemistry (test 0.2 ng/mL 0-6.6 N code = CKMBM-T) Chemistry (test Less than < 0.028 code = TROPI-T) 0.010 ng/mL Reference Ra nge 0. 00 - 0.028 ng/mL Negative 0.029 - 0.29 n g/mL Indeterminate Greater or Equa l to 0.3 ng/mL St rongly suggests ID [id number] 17:53:00 Test Item Value Reference Range Interpretation Comments Hematology (test code = SED) 120 mm/hr Less than 20 [id number] 17:49:00 Test Item Value Reference Range Interpretation Comments Chemistry (test code = CRP) 3.95 mg/dL = or < 0.5 H What test does the doctor want? C-REACTIVE PROTEIN (CRP)Chemistry - Specials 2016-07-18 17:27:00 Test Item Value Reference Range Interpretation Comments Chemistry - Specials (test code = 299 mOsm/kg 280-295 H OSMO) [id number] 17:16:00 Test Item Value Reference Range Interpretation Comments Toxicology (test Detected NotDetected A code = ARNAUD) Toxicology (test Not Detected NotDetected code = PCP) Toxicology (test Not Detected NotDetected code = COCN) Toxicology (test Not Detected NotDetected code = METHAMPU) Toxicology (test Not Detected NotDetected code = OPIA) Toxicology (test Not Detected NotDetected code = AMPHU) Toxicology (test Not Detected NotDetected code = RUSTY) Toxicology (test Not Detected NotDetected code = TRICY) Toxicology (test Not Detected NotDetected code = MTD) Toxicology (test Not Detected NotDetected code = EDITA) Toxicology (test Not Detected NotDetected code = OXYCOD) Toxicology (test Not Detected NotDetected code = PPX) Toxicology (test The MedT ox Profile-V code = MTCUTOFF) Panel for Q ualitative Drugs ofAbuse a ssays are for presump tive screening testi ng only.The drug c lass and detection l imits are as follows: Drug Class Detection LimitAmphetamin e 500 ng/mL*Barbitura ruperto 200 ng/mLBenzodiaze pines 150 ng/mL*Cocaine 150 ng/mL*Methamphe tamine 500 ng/mL*Methadone 200 ng/mL*Opiates 100 ng/mL*Oxycodone 100 n g/mLPCP 25 ng/mLPropox yphene 30 0 ng/mLTricyclic Antidepressants 300 ng/mLCannabinoi ds (THC) 50 ng/mLTests whic h yield a presumptive p ositive result must bet ested using a more sp ecific alternate chemi red method inorder to obtain a confir med analytical resu lt. Additionalconfi rmation and identificat ion may be ordered on a routinebasis, i f desired. Presu mptive positive ur[facility] [place] [place] Urine Source: Urine Clean CatchSepsis - Lactic Acid >2 [id number] 17:13:00 Test Item Value Reference Range Interpretation Comments Sepsis - Lactic Additional Lactate testin g will be Acid >2 Rflx performed in 3 hrs (test code = according to e EAQSA7L) SepsisProtocol. Chemistry - BNP, HgbA1c, [id number] 17:00:00 Test Item Value Reference Range Interpretation Comments Chemistry - BNP, 11.8 % 4.0-6.0 H Therapeutic goals for HgbA1c, PTHi (test glycemic control code = ZKVA0AZ) (ADA)Adults: - Goal of therapy: Less t foreman 7.0% HbA1c- Action s uggested: Greater than 8. 0% LpT9xWbmqnilop patients:- Toddlers and pr eschoolers: Less than 8.5% (but Greater than 7.5%)- Anthony ool age (6-12 years): Less th an 8%- Adolescents and young adults (13-19 years): Less than 7.5%Diagnosing diabetes (ADA)- HbA1c: G reater than or equal to 6.5% Values of 5.7 - 6.4% i ndicate HIGH risk for developing DiabetesInterna tional Expert Committee Repor t on the Role of the T3AAglah in the Diagnosis of Di abetes. Diabetes Care 2009July;32(7): 1327-1334ADA, Diagnosis cla ssification of diabetes [facility].Diabetes Care 2010; 33 S uppl 1:S62 [id number] 16:01:00 Test Item Value Reference Range Interpretation Comments Accuchek (test code = ACU) 185 mg/dL 70-110 H [id number] 15:04:00 Test Item Value Reference Range Interpretation Comments Urinalysis (test code = YELLOW Yellow UACLR) Urinalysis (test code = CLEAR Clear UACLY) Urinalysis (test code = 1.031 1.002-1.036 N SPGR) Urinalysis (test code = 5.0 5.0-9.0 N PATRICIA) Urinalysis (test code = Negative Negative UALEU) Urinalysis (test code = Negative Negative UANIT) Urinalysis (test code = 100 mg/dL Neg-Trace A PROUADIP) Urinalysis (test code = >=1000 mg/dL Negative A GLUCU) Urinalysis (test code = Negative mg/dL Negative KETU) Urinalysis (test code = 0.2 mg/dL 0.2-1.0 UAUROB) Urinalysis (test code = Negative Negative UABIL) Urinalysis (test code = Moderate Negative A UABLD) Urinalysis (test code = 4-6 HPF 0-3 UARBC) Urinalysis (test code = 0-3 HPF 0-3 UAWBC) Urinalysis (test code = 0-3 HPF 0-3 UASQUAM) Urinalysis (test code = None Seen HPF None Seen UABAC) Urinalysis (test code = 0-3 HYALINE CAST LPF 0-3 Hyaline UACAST) Urine Source: Urine Clean [id number] 14:56:00 Test Item Value Reference Range Interpretation Comments Accuchek (test code = ACU) 215 mg/dL 70-110 H Point of Care [id number] 14:13:00 Test Item Value Reference Range Interpretation Comments Point of Care 7.340 7.35-7.45 L Testing (test code = POCpHv) Point of Care 38.7 mmHg 41.0-51.0 L Testing (test code = NYMsVW8m) Point of Care 31.2 mmHg 35.0-45.0 L Testing (test code = JVNzR1s) Point of Care 20.9 mmol/L Testing (test code = OOCFCY5y) Point of Care -4.5 mmol/L Testing (test code = POCBEv) Point of Care 56.5 % Testing (test code = POCO2v) Point of Care 36.0 % 28-65 N Testing (test code = POCHCTVBG) Point of Care 12.4 g/dL Testing (test code = POCHGBVBG) Point of Care 136.0 mmol/L 133-145 N Testing (test code = POCNAVBG) Point of Care 3.8 mmol/L 3.4-5.9 N Testing (test code = POCKVBG) Point of Care 104.0 mmol/L 98-113 N Testing (test code = POCCLVBG) Point of Care 22.1 mmol/L Testing (test code = MGHVAG0m) Point of Care 1.12 mmol/L 1.05-1.42 N Testing (test code = POCCAVBG) Point of Care 0.53 mg/dL 0.60-1.10 L Testing (test code = POCCREVBG) Point of Care 283.0 mg/dL 50-115 H Testing (test code = POCGLUVBG) Point of Care 3.66 mmol/L 0.50-2.20 H Testing (test code = POCLACVBG) Point of Care Greater than Reference Rang e for Testing (test 60 Estimated GFR: code = Greater than 60 POCEGFRMDRD) mL/min/1.73 m2N OTE:This range is based on the specific [facility] Kidney DiseaseEducatio n Program (NKDEP) recomme ndation for reporting eGFRvalues. eG FR > 60 does not exclud e the possibility of mildrenal disease. Furth er laboratory test ing may be necessaryto distinguish nor mal renal function from m ild renaldisease. Point of Care Greater than Reference Rang e for Testing (test 60 Estimated GFR: code = Greater than 60 POCEGFRMDRDa) mL/min/1.73 m2 NOTE:This range is based on the specific [facility] Kidney DiseaseEducatio n Program (NKDEP) recomme ndation for reporting eGFRvalues. eG FR > 60 does not exclud e the possibility of mildrenal disease. Furth er laboratory test ing may be necessaryto distinguish nor mal renal function from m ild renaldisease. Point of Care 11 mmol/L Testing (test code = POCANGP) [id number] 13:35:00 Test Item Value Reference Range Interpretation Comments Chemistry (test 0.2 ng/mL 0-6.6 N code = CKMBM-T) Chemistry (test Less than < 0.028 code = TROPI-T) 0.010 ng/mL Reference Ra nge 0. 00 - 0.028 ng/mL Negative 0.029 - 0.29 n g/mL Indeterminate Greater or Equa l to 0.3 ng/mL St rongly suggests ID [id number] 13:31:00 Test Item Value Reference Range Interpretation Comments Chemistry (test code = BOHB) 0.39 mmol/L 0.02-0.27 H [id number] 13:29:00 Test Item Value Reference Range Interpretation Comments Chemistry (test code 129 mmol/L 136-145 L = NA-T) Chemistry (test code 3.9 mmol/L 3.5-5.1 N = K-T) Chemistry (test code 98 mmol/L 98-107 N = CL) Chemistry (test code 21 mmol/L 22-29 L = CO2) Chemistry (test code 14 mmol/L 10-20 N = ANGP) Chemistry (test code 21 mg/dL 7.0-18.7 H = BUN) Chemistry (test code 0.99 mg/dL 0.6-1.1 N = CREATT) Chemistry (test code 61 Referen ce Range for = EGFRMDRD) Estimated GFR: Great er than 90 mL/min/1.73 m2NOTE:The MDRD equation has no t been validated for u se with theelderly (ove r 70 years of age), women, patientswith se rious comorbid condit ion or persons with ex tremes ofbody size, mu scle mass, or nutrit ional status. Chemistry (test code 500 mg/dL 70-105 H = GLU-T) Chemistry (test code 9.4 mg/dL 7.8-10.44 N = CA) [id number] 13:29:00 Test Item Value Reference Range Interpretation Comments Chemistry (test code = PHOS) 3.5 mg/dL 2.3-4.7 N [id number] 13:29:00 Test Item Value Reference Range Interpretation Comments Chemistry (test code = MG) 1.6 mg/dL 1.6-2.6 N [id number] 13:27:00 Test Item Value Reference Range Interpretation Comments Accuchek (test code = ACU) 488 mg/dL 70-110 H [id number] 13:11:00 Test Item Value Reference Range Interpretation Comments Hematology (test code = WBCT) 14.8 thou/uL 4.8-10.8 H Hematology (test code = RBCT) 4.20 mill/uL 4.20-5.40 N Hematology (test code = HGBT) 12.5 g/dL 12.0-16.0 N Hematology (test code = HCTT) 35.1 % 36.0-47.0 L Hematology (test code = MCV) 83.6 fl 81.0-99.0 N Hematology (test code = MCH) 29.8 pg 27.0-31.0 N Hematology (test code = MCHC) 35.7 g/dL 32.0-36.0 N Hematology (test code = RDW) 13.7 % 11.5-14.5 N Hematology (test code = PLTT) 299 thou/uL 130-400 N Hematology (test code = MPV) 8.3 fL 7.4-10.4 N Hematology (test code = %NEUT) 73.3 % 42.0-75.0 N Hematology (test code = %LYMPH) 18.7 % 21.0-51.0 L Hematology (test code = %MONO) 6.8 % 0.0-10.0 N Hematology (test code = %EOS) 0.8 % 0.0-10.0 N Hematology (test code = %BASO) 0.5 % 0.0-1.0 N Hematology (test code = NEUT#) 10.8 thou/uL 1.40-6.50 H Hematology (test code = LYMPH#) 2.8 thou/uL 1.20-3.40 N Hematology (test code = MONO#) 1.0 thou/uL 0.11-0.59 H Hematology (test code = EOS#) 0.1 thou/uL 0.0-0.7 N Hematology (test code = BASO#) 0.1 thou/uL 0.0-0.2 N [id number] 10:51:00 Test Item Value Reference Range Interpretation Comments Accuchek (test code = ACU) 525 mg/dL 70-110 H [id number] 10:51:00 Test Item Value Reference Range Interpretation Comments Accuchek (test code = ACU) 513 mg/dL 70-110 H XR Pelvis AP STANDARD Name: AJ VALENTE : 1970 [facility] Name: AJ VALENTE [address] [facility] Phys: HUMAIRA [place] [address] : 1970 Age: 50 SEX:F Exam Date: 09/24/20 Status: REG ER Acct: [id number] Loc: [facility] Pt Unit #: [id number] Report #: [id number] CC: HUMAIRA TREVINO MD IMAGING SER VICES REPORT Order # Category/Exam [id number] RAD/XR Pelvis AP STANDARD ([id number]): . Results Exam: AP pelvis one view: HISTORY: Injury, fall, tailbone pain COMPARISON:CT pelvis, 08/30/2020 FINDINGS: No evidence for fracture, dislocation, or other significantacute osseous abnormality. IMPRESSION: No significant acute process. If patient has persistent or worsening tailbone pain, consider nonemergent follow-up MRI for further evaluation. Reported By: Maikel Roth MD Electronically Signed Date/Time: 09/24/20 1541 Technologist: NISH Dictated Date/Time: 09/24/20 1539 Transcribed Date/Time:CT Pelvis W ConName: AJ VALENTE : 1970 [facility] Pt Name: AJ VALENTE [address] [facility] Phys: [place] [address] : 1970 Age: 50 SEX:F Exam Date: 08/29/20 Status: ADM IN Acct: [id number] Loc: [facility] Unit #: [id number] Report #: [id number] CC: Akash Chaparro MD [facility] Order # Category/Exam [id number] CT/CT Pelvis W Con ([id number]): . Results EXAM: CT pelvis without and with contrast HISTORY: Air in the urinary bladder. Evaluate for fistula into the urinary bladder COMPARISON: 08/29/2020 and 03/13/2020 TECH NIQUE: Multiple contiguous axial images were obtained and a CT of the pelvis without and with contrast. Sagittal and coronal reformats were performed. FINDINGS: A He catheter is seen in the urinary bladder. Air is seen in the nondependent aspect of the urinary bladder. No calcifications are seen in the urinary bladder. The reproductive organs are unremarkable. Contrast was instilled through the He catheter moderately distending the urinary bladder. None of the contrast extends outside of the urinary bladder and no fistulous tract is identified.There appears to be a fat plane between the external wall of the urinary bladder and in the adjacent bowel loops with loss of the fat sascha ne between the anterior uterus in the urinary bladder. No pelvic adenopathy. Atherosclerotic calcifications in the aorta. IMPRESSION: No fistula identified Reported By: Gaby amos,Radu Goldstein MD Electronically Signed Date/Time: 08/30/20 1153 Technologist: [email or web address] Dictated Date/Time: 08/30/20 1144 Transcribed Date/Time:CT Abdomen Pelvis W Con Name: AJ VALENTE : 1970 [facility] Pt Name: AJ VALENTE [address] [facility] Phys: [place] [address] : 1970 Age: 50 SEX:F Exam Date: 08/28/20 Status: ADM IN Acct: [id number] Loc: [facility] Pt Unit #: [id number] Report #: [id number] CC: JITENDRA MCCLAIN Mary PA-C CAT SCAN REPORT Order # Category/Exam [id number] CT/CT Abdomen Pelvis W Con ([id number]): . Results PRELIMINARY REPORT EXAM: CT Abdomen and Pelvis with Intravenous Contrast CLINICAL HISTORY: 50-year-old female presents emergency room complaining of left-sided rib pain/chest pain. TECHNIQUE: Axial computed tomography images of the abdomen and pelvis with intravenous contrast. CONTRAST: With; CONTRAST, Isovue 370, 60 mL COMPARISON: None provided. FINDINGS: LUNG BASES: No basilar airspace consolidation or pleural effusion. LIVER: Unremarkable. GALLBLADDER AND BILE DUCTS: The gallbladder is partially contracted. PANCREAS: Unremarkable. SPLEEN: Unremarkable. ADRENAL GLANDS:Unremarkable. KIDNEYS, URETERS, AND BLADDER: Multiple bilateral intrarenal calculi are present. No ureteral calculus or evidence of hydronephrosis is observed. There is asymmetric bladder wall thickening observed with nondependent air within the bladder lumen. STOMACH AND BOWEL: No obstruction. No wall thickening. No CT evidence of colitis or acute diverticulitis. APPENDIX: No CT evidence for appendicitis. PERITONEUM: No free fluid. No free air. LYMPH NODES: No lymphadenopathy. REPRODUCTIVE: Unremarkable as visualized. VASCULATURE: No aortic aneurysm. BONES: Lumbar degenerative changes are present, particularly at L4-5. ABDOMINAL WALL AND SOFT TISSUES: Unremarkable. IMPRESSION: 1. Multiple bilateral intrarenal calculi. No ureteral calculus or evidence of hydronephrosis is present. 2. Prominent asymmetric thickening of the bladder wall which may reflect a component of cystitis. There is also nondependent air within the bladder lumen. This may be due to recent instrumentation, though infection isnot excluded. 3. No current CT findings of appendicitis identified. 4. Lumbar degenerative mcclain ges, particularly at L4-5. ELECTRONICALLY SIGNED BY: Santos Lopez MD Aug 29, 2020 1:01:18 AM CDT This report is intended for review by the ordering physician only, in accordance of law. If you receive this report in error, please call [facility] at [phone]. Emergent after hours CT abdomen and pelvis with IV contrast HISTORY: Abdominal pain. Gastroesophageal reflux disease. Left-sided rib/chest pain. Ongoing symptoms for 2 weeks. COMPARISON: 05/09/2020 IMPRESSION: 1. Multiple nonobstructing bilateral renal calculi largest on the right measuring a pproximately 4 mm. 2. Urinary bladder wall does appear thickened, but the urinary bladder is also decompressed which may potentially account for this finding. Cystitis is a consideration in the correct clinical scenario. Gas is seen within the nondependent portion of the urinary bladder which could be relatedto recent instrumentation, but clinical correlation is recommended. If the patient does not have history of instrumentation, gas in urinary bladder is abnormal and could be related to either gas-forming organism secondary to infection or secondary to fistula formation. However, no loops of bowel are seen closely adjacent to the urinary bladder. 3. No CT evidence of appendicitis. 4.Vascular calcifications in a normal caliber abdominal aorta and iliac arteries 5. Slightly lobulated contour at the uterine fundus which could potentially be related to uterine fibroid. 6. Findingsare in agreement with preliminary report by [facility]. Code QA Transcribed Date/Time: 08/29/2020 10:47 AM Reported By: Ash Wolf MD Electronically Signed Date/Time: 08/29/20 170 Technologist: [email or web address] Dictated Date/Time: 08/29/20 0816 Transcribed Date/Time:CTA Angio Chest W WO Con Name: AJ VALENTE : 1970 [facility] Pt Name: AJ VALENTE [address] [facility] Phys: JITENDR[place] [address] : 1970 Age: 50 SEX:F Exam Date: 08/28/20 Status: ADM IN Acct: [id number] Loc: [facility] Pt Unit #: [id number] Report #: [id number] CC: JITENDRA MCCLAIN Mary PA-C CAT SCAN REPORT Order # Category/Exam [id number] CT/CTA Angio Chest W WO Con ([id number]): . Results PRELIMINARY REPORT EXAM: CTA Chest with Intravenous Contrast CLINICAL HISTORY: 50-year-old female presents emergency room complaining of left-sided rib pain /chest pain. TECHNIQUE: Axial CTA images of the chest with intravenous contrast. Three-dimensional MIP/volume rendered reformations were performed. CONTRAST: With; CONTRAST, Isovue 370, 60mL COMPARISON: None provided. FINDINGS: PULMONARY ARTERIES There is no intraluminal filling defect suspicious for PE. AORTA No thoracic aortic aneurysm or dissection. LUNGS The lungs are clear. No pulmonary mass. No focal airspace consolidation. PLEURAL SPACES No pleural effusion. No pneumothorax. HEART AND MEDIASTINUM No cardiomegaly. No significant pericardial effusion. LYMPH NODES No lymphadenopathy. BONES No focal osseous abnormality or acute fracture. CHEST WALL AND UPPER ABDOMEN Images through the upperabdomen are unremarkable. The chest wall is unremarkable. IMPRESSION: Unremarkable CTA of the chest. ELECTRONICALLY SIGNED BY: Santos Lopez MD Aug 29, 2020 12:56:05 AM CDT This report is intended for review by the ordering physician only, in accordance of law. If you receivethis report in error, please call [facility] at [phone]. Emergent after hours CT angiogram thorax with IV contrast and 3-D reconstructions HISTORY: Elevated d-dimer. COMPARISON: None IMPRESSION: 1. No CT evidence of a pulmonary embolus. 2. Vascular calcifications at the origins of the great vessels which partially obscures the lumen of the left subclavian artery, and there could potentially be severe narrowing at the origin of the left subclavian artery due to very dense vascular calcification. 3. Lungs are clear without consolidation, pleural fluid, or pulmonary nodule visualized. 4. Findings are in agreement with the preliminary report by [facility]. Transcribed Date/Time: 08/29/2020 10:47 AM Reported By: Ash Wolf MD Electronically Signed Date/Time: 08/29/20 170 Technologist: [email or web address] Dictated Date/Time: 08/29/20 0747 Transcribed Date/Time: XR Chest Pa Lat STANDARD Name: AJ VALENTE : 1970 Sex: [facility] Pt Name: AJ VALENTE [address] [facility] Phys: Carlos Andre [place] [address] : 1970 Age: 50 SEX:F Exam Date: 08/28/20 Status: REG ER Acct: [id number] Loc: [facility] Pt Unit #: [id number] Report #: [id number] CC: Carlos Andre TUTORING MANAGER IMAGING SER VICES REPORT Order # Category/Exam [id number] RAD/XR Chest Pa Lat STANDARD ([id number]): . Results XR Chest Pa Lat STANDARD History: Chest pain Comparison: None. Findings: Lungs are clear. No pneumothorax or effusion. Cardiac silhouette and mediastinal contoursare withinnormal limits. Impression: No acute intrathoracic abnormality. Reported By: MARY TORRES Electronically Signed Date/Time: 08/28/202222Technologist: INDERJIT Dictated Date/Time: 08/28/202221 Transcribed Date/Time:
[2020-10-13 02:42] LABS: Urine Blood 2+ (Negative); Urine Glucose 2+ (Negative); Urine Protein 3+ (Negative); Urine pH 6.5 (5.0-7.0)
[2020-10-13 02:55] LABS: Absolute Lymphocytes (CBC) 2.8 K/uL (0.7-4.9); Basophils % 0.6 % (0-1.3); Hematocrit 29.2 % (36.0-45.0); Lymphocytes % 26.8 % (15.3-44.8); RBC Red Blood Cell Count 3.42 M/uL (3.86-4.86)
[2020-10-13] MEDS ORDERED: MORPHINE 4 MG/ML SYR ONE (03:04)
[2020-10-13] MEDS ORDERED: ONDANSETRON 4 MG/2 ML VIAL ONE (03:04)
[2020-10-13] MEDS ORDERED: NA CHLORIDE 0.9% 1,000 ML ONE (03:04)
[2020-10-13 03:11] LABS: ALT/SGPT 14 U/L (12-78); AST/SGOT 8 U/L (15-37); Alkaline Phosphatase 89 U/L (45-117); BUN Blood Urea Nitrogen 29 mg/dL (7-18); Bicarbonate 26 mmol/L (21-32); Bilirubin Direct < 0.1 mg/dL (0-0.2); Bilirubin Total 0.2 mg/dL (0.2-1.0); Glucose Level 278 mg/dL (74-106); Lipase 119 U/L (73-393); Potassium 3.8 mmol/L (3.5-5.1); Protein, Total 7.4 g/dL (6.4-8.2); Sodium Level 137 mmol/L (136-145)
[2020-10-13] MEDS ORDERED: DIPHENHYDRAMINE 50 MG/ML VIAL ONE (03:56)
--- NOTE | 2020-10-13 04:33 | ER ---
Nurse's Notes [facility] Name: Colleen Ellison Age: 50 yrs Sex: Female : 1970 Arrival Date: 10/13/2020 Time: 01:59 Bed 7 Private MD: Diagnosis: Abdominal pain. Cystitis Presentation: 10/13 02:18 Chief complaint: Patient states: she is having severe abdominal pain on both sides bb since yesterday denies vomiting or diarrhea or any dysuria. Pt states pain does not radiate and is constant. Coronavirus screen: At this time, the client does not indicate any symptoms associated with coronavirus-19. Ebola Screen: No symptoms or risks identified at this time. Initial Sepsis Screen: Does the patient meet any 2 criteria? No. Patient's initial sepsis screen is negative. Does the patient have a suspected source of infection? No. Patient's initial sepsis screen is negative. Risk Assessment: Do you want to hurt yourself or someone else? Patient reports no desire to harm self or others. Onset of symptoms was October 12, 2020. 02:18 Method Of Arrival: Ambulatory bb 02:18 Acuity: JOHNNIE 3 bb Triage Assessment: 02:26 General: Appears in no apparent distress. Behavior is calm, cooperative. Pain: ak2 Complains of pain in abdomen. Neuro: No deficits noted. Cardiovascular: No deficits noted. Respiratory: No deficits noted. GI: Reports upper abdominal pain, nausea. HEALTH CARE MANAGER: 02:20 LMP 05/2020, pt thinks she is in menopause bb Historical: - Allergies: 02:20 Levaquin; bb 02:20 Lyrica; bb - Home Meds: 02:20 Depakote Oral [Active]; Metformin Oral [Active]; Lantus Sub-Q [Active]; Reglan Oral bb [Active]; - PMHx: 02:20 Seizure; Diabetes mellitus; bb - PSHx: 02:20 back surgery; bb - Immunization history:: Adult Immunizations up to date. - Social history:: Smoking status: Patient reports the use of cigarette tobacco products, smokes one pack cigarettes per day. Patient uses street drugs, marijuana, Patient/guardian denies using alcohol. Screenin:25 Abuse screen: Denies threats or abuse. Denies injuries from another. Nutritional ak2 screening: No deficits noted. Tuberculosis screening: No symptoms or risk factors identified. Fall Risk None identified. Assessment: 02:27 GI: Bowel sounds present X 4 quads. Abd is soft and non tender. ak2 02:27 Reassessment: Patient and/or family updated on plan of care and expected duration. Pain ak2 level reassessed. General: Appears in no apparent distress. 02:54 Reassessment: poc urine test negative. ak2 04:42 Reassessment: Patient and/or family updated on plan of care and expected duration. Pain ea level reassessed. Patient is alert, oriented x 3, equal unlabored respirations, skin warm/dry/pink. Discharge instruction given to patient verbalized the understanding of instruction. Vital Signs: 02:18 BP 172 / 87; Pulse 96; Resp 20 S; Temp 97.9(O); Pulse Ox 95% on R/A; Weight 95.25 kg bb (R); Height 5 ft. 10 in. (177.80 cm) (R); Pain 8/10; 02:26 BP 136 / 91; Pulse 82; Resp 16; Pulse Ox 98% on R/A; ak2 02:18 Body Mass Index 30.13 (95.25 kg, 177.80 cm) bb ED Course: 01:59 Patient arrived in ED. wm 02:14 Hai Peter MD is Attending Physician. pkl 02:20 Triage completed. bb 02:20 Arm band placed on Patient placed in an exam room, on a stretcher, on pulse oximetry. bb 02:25 Patient has correct armband on for positive identification. ak2 02:25 No provider procedures requiring assistance completed. ak2 02:42 Initial lab(s) drawn, by me, sent to lab. Inserted saline lock: 20 gauge in right tt3 antecubital area, using aseptic technique. Blood collected. 03:33 CT Abd/Pelvis - IV Contrast Only In Process Unspecified. EDMS 04:42 IV discontinued, intact, bleeding controlled, No redness/swelling at site. Pressure ea dressing applied. Administered Medications: 02:45 Drug: Zofran (Ondansetron) 4 mg Route: IVP; Site: right antecubital; ea 04:41 Follow up: Response: No adverse reaction ea 02:46 Drug: NS 0.9% 1000 ml Route: IV; Rate: 1000 ml; Site: right antecubital; ea 04:44 Follow up: Response: No adverse reaction; IV Status: Completed infusion; IV Intake: ea 1000ml 02:46 Drug: morphine 4 mg Route: IVP; Site: right antecubital; ea 04:41 Follow up: Response: No adverse reaction ea 03:41 Drug: Benadryl (diphenhydrAMINE) 25 mg Route: IVP; Site: right antecubital; ak2 04:41 Follow up: Response: No adverse reaction ea 04:41 Drug: Bactrim (trimethoprim-sulfamethoxazole) (160 mg-800 mg (DS) 1 tablet Route: PO; ea 04:42 Follow up: Response: No adverse reaction ea Intake: 04:44 IV: 1000ml; Total: 1000ml. ea Outcome: 04:33 Discharge ordered by . ayala 04:42 Discharged to home ambulatory, with family. ea 04:42 Condition: stable 04:42 Discharge instructions given to patient, family, Instructed on Demonstrated understanding of instructions, follow-up care, medications, Prescriptions given X 1. 04:43 Patient left the ED. ea Signatures: Dispatcher [employer] EDHai Brantley MD MD pkl Ballard, Brenda RN Frances Omer RN RN ea Trim, Tyler tt3 Kerwin Sanchez Wendy wm
--- NOTE | 2020-10-13 04:33 | EDPHYS ---
Physician Documentation [facility] Name: Colleen Ellison Age: 50 yrs Sex: Female : 1970 Arrival Date: 10/13/2020 Time: 01:59 Bed 7 Private MD: ED Physician Hai Peter HPI: 10/13 02:35 This 50 yrs old Female presents to ER via Ambulatory with complaints of pkl Abdominal Pain. 02:35 The patient presents with abdominal pain in the lower abdomen. Onset: The pkl symptoms/episode began/occurred yesterday. The symptoms do not radiate. Associated signs and symptoms: none. CONCIERGE: 02:20 LMP 05/2020, pt thinks she is in menopause bb Historical: - Allergies: 02:20 Levaquin; bb 02:20 Lyrica; bb - Home Meds: 02:20 Depakote Oral [Active]; Metformin Oral [Active]; Lantus Sub-Q [Active]; Reglan Oral bb [Active]; - PMHx: 02:20 Seizure; Diabetes mellitus; bb - PSHx: 02:20 back surgery; bb - Immunization history:: Adult Immunizations up to date. - Social history:: Smoking status: Patient reports the use of cigarette tobacco products, smokes one pack cigarettes per day. Patient uses street drugs, marijuana, Patient/guardian denies using alcohol. ROS: 02:35 Eyes: Negative for injury, pain, redness, and discharge, ENT: Negative for injury, pkl pain, and discharge, Neck: Negative for injury, pain, and swelling, Cardiovascular: Negative for chest pain, palpitations, and edema, Respiratory: Negative for shortness of breath, cough, wheezing, and pleuritic chest pain. 02:35 Abdomen/GI: Positive for abdominal pain, of the right lower quadrant and left lower quadrant. 02:35 Back: Negative for acute changes. 02:35 : Negative for urinary symptoms. 02:35 MS/extremity: Negative for acute changes. 02:35 Skin: Negative for rash. 02:35 Neuro: Negative for altered mental status, loss of consciousness. Exam: 02:35 Head/Face: Normocephalic, atraumatic. Eyes: Pupils equal round and reactive to light, pkl extra-ocular motions intact. Lids and lashes normal. Conjunctiva and sclera are non-icteric and not injected. Cornea within normal limits. Periorbital areas with no swelling, redness, or edema. ENT: Nares patent. No nasal discharge, no septal abnormalities noted. Tympanic membranes are normal and external auditory canals are clear. Oropharynx with no redness, swelling, or masses, exudates, or evidence of obstruction, uvula midline. Mucous membranes moist. Neck: Trachea midline, no thyromegaly or masses palpated, and no cervical lymphadenopathy. Supple, full range of motion without nuchal rigidity, or vertebral point tenderness. No Meningismus. Chest/axilla: Normal chest wall appearance and motion. Nontender with no deformity. No lesions are appreciated. Cardiovascular: Regular rate and rhythm with a normal S1 and S2. No gallops, murmurs, or rubs. Normal PMI, no JVD. No pulse deficits. Respiratory: Lungs have equal breath sounds bilaterally, clear to auscultation and percussion. No rales, rhonchi or wheezes noted. No increased work of breathing, no retractions or nasal flaring. 02:35 Abdomen/GI: Bowel sounds: normal, Palpation: soft, mild abdominal tenderness, in the right lower quadrant and left lower quadrant. 02:35 Back: Exam negative for acute changes. 02:35 : Exam negative for acute changes. 02:35 Musculoskeletal/extremity: Exam is negative for acute changes. 02:35 Skin: Exam negative for rash. 02:35 Neuro: Orientation: is normal, Mentation: is normal, Cranial nerves: grossly normal, Motor: is normal. Vital Signs: 02:18 BP 172 / 87; Pulse 96; Resp 20 S; Temp 97.9(O); Pulse Ox 95% on R/A; Weight 95.25 kg bb (R); Height 5 ft. 10 in. (177.80 cm) (R); Pain 8/10; 02:26 BP 136 / 91; Pulse 82; Resp 16; Pulse Ox 98% on R/A; ak2 02:18 Body Mass Index 30.13 (95.25 kg, 177.80 cm) bb MDM: 02:14 Patient medically screened. pkl 04:30 Data reviewed: vital signs, nurses notes, lab test result(s), radiologic studies, CT pkl scan. ED course: Patient feeling better. Discussed lab and CT Scan result with patient. Advised to follow up with PCP in 2 to 3 days. Patient understood instruction. 10/13 02:19 Order name: Basic Metabolic Panel; Complete Time: 03:17 ea 10/13 02:19 Order name: CBC with Diff; Complete Time: 03:17 ea 10/13 02:19 Order name: Hepatic Function; Complete Time: 03:17 ea 10/13 02:19 Order name: Lipase; Complete Time: 03:17 ea 10/13 02:42 Order name: Urine Dipstick-Ancillary EDMS 10/13 03:15 Order name: Urine --Ancillary (enter results); Complete Time: 03:39 mw2 10/13 02:19 Order name: IV Saline Lock; Complete Time: 02:46 ea 10/13 02:19 Order name: Labs collected and sent; Complete Time: 02:46 ea 10/13 02:33 Order name: CT Abd/Pelvis - IV Contrast Only pkl Administered Medications: 02:45 Drug: Zofran (Ondansetron) 4 mg Route: IVP; Site: right antecubital; ea 04:41 Follow up: Response: No adverse reaction ea 02:46 Drug: NS 0.9% 1000 ml Route: IV; Rate: 1000 ml; Site: right antecubital; ea 04:44 Follow up: Response: No adverse reaction; IV Status: Completed infusion; IV Intake: ea 1000ml 02:46 Drug: morphine 4 mg Route: IVP; Site: right antecubital; ea 04:41 Follow up: Response: No adverse reaction ea 03:41 Drug: Benadryl (diphenhydrAMINE) 25 mg Route: IVP; Site: right antecubital; ak2 04:41 Follow up: Response: No adverse reaction ea 04:41 Drug: Bactrim (trimethoprim-sulfamethoxazole) (160 mg-800 mg (DS) 1 tablet Route: PO; ea 04:42 Follow up: Response: No adverse reaction ea Disposition Summary: 10/13/20 04:33 Discharge Ordered Location: Home pkl Problem: new pkl Symptoms: have improved pkl Condition: Stable pkl Diagnosis - Abdominal pain. Cystitis pkl Followup: pkl - With: Private Physician - When: 2 - 3 days - Reason: Re-evaluation by your physician Discharge Instructions: - Discharge Summary Sheet pkl Forms: - Medication Reconciliation Form pkl - Thank You Letter pkl - Antibiotic Education pkl - Prescription Opioid Use pkl Prescriptions: - Bactrim DS 800-160 mg Oral Tablet - take 1 tablet by ORAL route every 12 hours for 7 days; 14 tablet; Refills: 0, pkl Product Selection Permitted Signatures: Dispatcher [employer] Hai Mckinnon MD MD pkl Winnie Knowles, RN RN Frances Melgar RN RN Kerwin Bates
[2020-10-13] MEDS ORDERED: SMZ./TMP. 800/160 MG TABLET ONE (04:59)
[2020-10-13 05:01] VITALS: TEMP 97.9
[2020-10-13 05:03] VITALS: BP 136/91; O2SAT 98
--- NOTE | 2020-10-13 22:31 | RAD REPORT ---
EXAM DESCRIPTION: CT - Abdomen Pelvis W Contrast - 10/13/2020 6:24 am CLINICAL HISTORY: The patient is 50 years old and is Female; ABD PAIN TECHNIQUE: Axial computed tomography images of the abdomen and pelvis with intravenous contrast. S agittal and coronal reformatted images were created and reviewed. This CT exam was performed using one or more of the following dose reduction techniques: automated exposure control, adjustment of t he mA and/or kV according to patient size, and/or use of iterative reconstruction technique. COMPARISON: No relevant prior studies available. FINDINGS: Lung bases: Unremarkable. No mass. No consolidation. ABDOMEN: Liver: Unremarkable. No mass. Gallbladder and bile ducts: Unremarkable. No calcified stones. No ductal dilation. Pancreas: Pancreas appears atrophic. No ductal dilation. Spleen: Unremarkable. No splenomegaly. Adrenals: Unremarkable. No mass. Kidneys and ureters: Mild bilateral perinephric stranding. Nonobstructing calcifications in the kidneys bilaterally which may be vascular. Stomach and bowel: Scattered colonic diverticula. No obstruction. No mucosal thickening. PELVIS: Appendix: The appendix is normal. Bladder: There is the suggestion mild diffuse bladder wall thickening, but the bladder is relativ claudia nondistended limiting evaluation. Reproductive: Unremarkable as visualized. ABDOMEN and PELVIS: Intraperitoneal space: Unremarkable. No free air. No significant fluid collection. Bones/joints: No acute fracture. No dislocation. Soft tissues: Unremarkable. Vasculature: Scattered atherosclerotic vascular calcifications. Mild mesenteric stranding at the level of the SMA. Lymph nodes: Unremarkable. No enlarged lymph nodes. IMPRESSION: There is the suggestion mild diffuse bladder wall thickening, but the bladder is relativ claudia nondistended limiting evaluation. Correlate with any concern for cystitis. Electronically signed by: Edson Ornelas MD 10/13/2020 4:17 AM CDT Due to temporary technical issues with the PACS/Fluency reporting system, reports are being signed by the in house radiologists without review as a courtesy to insure prompt reporting. The interpreting radiologist is fully responsible for the content of the report.
== END 2020-10-13 04:43 | disposition home or self-care (01) ==
LOC: ER 01:56
DX: N30.90 Cystitis, unspecified without hematuria (principal); E11.9 Type 2 diabetes mellitus without complications; Z79.4 Long term (current) use of insulin; G40.909 Epilepsy, unspecified, not intractable, without status epilepticus
CPT/HCPCS: 96361; 85025; 80048; 36415; 81025; 80076; 81003; 83690; 74177; 96375; 96374; 99284; Q9967; J1200; J7030; J2405